=== PATIENT | male | born 1955 | race Caucasian/White ===

== ENCOUNTER 2018-07-30 14:55 | Emergency (ER) | payer OTHER ==
--- NOTE | 2018-07-30 15:07 | EDPHY ---
H & P Time Seen by Provider: 07/30/18 15:04 HPI/ROS: CHIEF COMPLAINT: ALS, PE HISTORY OF PRESENT ILLNESS: Patient is a 63-year-old man with a history of ALS with profound weakness on his right side and moderate weakness on his left side who is being cared for at home by his in [place]. He has medically assisted suicide scheduled next week in [place]. He also was diagnosed 3 months ago with a PE and has been on Eliquis. He discontinued his Eliquis to a week ago because he thought it was futile. Last night however he was having pleuritic pain similar to his previous PE pain. He decided to resume his Eliquis. He also has been taking morphine. His is says that she can no longer take care of him at home and that she is not a nurse and cannot manage him. She called EMS concerned that he may have overdosed on the morphine. He has been awake and alert with stable vital signs throughout transport. He denies recent fevers or infections. Severity: Moderate Modifying factors: None REVIEW OF SYSTEMS: Constitutional: denies: chills, fever, recent illness, recent injury EENTM: denies: blurred vision, double vision, nose congestion Respiratory: denies: cough, shortness of breath Cardiac: denies: chest pain, irregular heart rate, lightheadedness, palpitations Gastrointestinal/Abdominal: denies: abdominal pain, diarrhea, nausea, vomiting, blood streaked stools Genitourinary: denies: dysuria, frequency, hematuria, pain Musculoskeletal: denies: joint pain, muscle pain Skin: denies: lesions, rash, jaundice, bruising Neurological: denies: headache, numbness, paresthesia, tingling, dizziness, weakness Hematologic/Lymphatic: denies: blood clots, easy bleeding, easy bruising Immunologic/allergic: denies: HIV/AIDS, transplant 10 systems reviewed and negative except as noted EXAM: GENERAL: Fatigued HEAD: Atraumatic, normocephalic. EYES: Pupils equal round and reactive to light, extraocular movements intact, sclera anicteric, conjunctiva are normal. ENT: TMs normal, nares patent, oropharynx clear without exudates. Moist mucous membranes. NECK: Normal range of motion, supple without lymphadenopathy or JVD. LUNGS: Breath sounds clear to auscultation bilaterally and equal. No wheezes rales or rhonchi. HEART: Regular rate and rhythm without murmurs, rubs or gallops. ABDOMEN: Soft, nontender, normoactive bowel sounds. No guarding, no rebound. No masses appreciated. BACK: No CVA tenderness, no spinal tenderness, step-offs or deformities EXTREMITIES: Minimal movement in the right arm, no movement in right leg, minimal movement in left arm and leg, this is all baseline. NEUROLOGICAL: Cranial nerves II through XII grossly intact. Normal speech, normal gait. 5/5 strength, normal movement in all extremities, normal sensation , normal reflexes PSYCH: Slightly decreased affect SKIN: Warm, dry, normal turgor, no visible rashes or lesions. Source: Patient Exam Limitations: No limitations - Medical/Surgical History Hx Asthma: No Hx Chronic Respiratory Disease: No Hx Diabetes: No Hx Cardiac Disease: No Hx Renal Disease: No Hx Cirrhosis: No Hx Alcoholism: No Other PMH: ALS, PE - Family History Significant Family History: No pertinent family hx - Social History Smoking Status: Never smoked Alcohol Use: Sober Drug Use: None Constitutional: Initial Vital Signs Temperature (C) 36.8 C 07/30/18 14:58 Heart Rate 94 07/30/18 14:58 Respiratory Rate 18 07/30/18 14:58 Blood Pressure 140/86 H 07/30/18 14:58 O2 Sat (%) 88 L 07/30/18 14:58 O2 Delivery Mode Room Air O2 (L/minute) 2 Medical Decision Making ED Course/Re-evaluation: 4:20 p.m. I had a long discussion with the patient and his . The patient is doing well however his is very flustered. She initially asked me if she could just go and they would take him home but then she began talking about how she was going to have difficulty taking care of him at home and was scared to administer medications. I again offered admission with the goal for higher level of assistance and help getting back to [place]. She was unsure as to whether not this is what she wanted. Case management is currently talking with the hospice nurse in [place] to assist with planning. 5:10 p.m. patient was able to ambulate well with the walker. He is less and less groggy. His vital signs remained stable. His pain is controlled. We had multiple discussions with case management and hospice. His Hospice does not feel that he is appropriate for admission. and friend are agreeable to taking him home feel like taking care for him there. They are concerned about giving him too much pain medication. We encouraged him to return here if they feel that he is requiring too much pain medication. I did offer admission several times but for now their goal is to go home. The patient does not wish to be admitted. Differential Diagnosis: Partial list of the Differential diagnosis considered include but were not limited to; pulmonary embolism, chronic pain, depression, overdose and although unlikely based on the history and physical exam, I also considered infection, head injury. Departure - Departure Disposition: Home, Routine, Self-Care Clinical Impression: ALS (amyotrophic lateral sclerosis) Pulmonary embolism Qualifiers: Pulmonary embolism type: other Chronicity: unspecified Acute cor pulmonale presence: without acute cor pulmonale Qualified Code(s): I26.99 - Other pulmonary embolism without acute cor pulmonale Condition: Fair Instructions: Pulmonary Embolism (ED), Amyotrophic Lateral Sclerosis (DC) Referrals: Patient,NotPresent [Unknown] - As per Instructions
[2018-07-30 17:31] VITALS: BP 141/84
--- NOTE | 2018-07-30 17:49 | ASMTCMCOM ---
CM Note CM Note Notes: Pt presented to the ED via EMS for possible overdose of opioids and benzos. Pt arrived to the ED and has been awake and alert w/stable vital signs; pt does appear slightly sedated / slightly decreased affect. Pt is visiting [place] from [place], with his , Erika; they used to live in [place] for 25 years but have lived in [place] for the past 8 years. Pt has ALS w/profound weakness on his right side and moderate weakness on his left side. Erika has been pt's primary caregiver but pt also receives services through [facility] ([phone]) in [place]. Pt has decided to go through the Medical Aid in Dying process and is scheduled to take the medication this next week. Pt and Erika came up to [place] so pt could visit w/friends and say goodbye; they have been staying in their condo. Erika states she needs to poultry picker the Rxn from [facility] tomorrow after 1 p.m. and then they plan on returning to [place] on Wednesday. Last night pt was having 10/10 pain "nothing I've ever experienced." Erika was calling the on-call hospice (on-call # [phone]) team who were helping give medication administration instructions over the phone; Erika was assisting pt with administering the meds but pt's pain continued to be unbearable but then became rather sedated, weak, and unable to function at baseline; Erika was afraid he had unintentionally overdosed. Pt's cognition and alertness continued to improve while in the ED. Pt was able to walk w/walker (which is his baseline) and Erika feels okay discharging home w/the help of a friend to help get pt into their condo. Erika states she will call their friends or neighbor for assistance if she feels she needs extra help. We discussed that if pt has another severe pain flare tonight that Erika call Hospice again and attempt to control it w/the meds they have and at the condo but if he seems to not be getting a relief she can always bring him to the ED if she is scared to administer additional medication. Erika verbalizes understanding. This CM had spoke w/[facility] supervisor painting (?) Jodi ([phone]) and discussed pt's case; Joid states she agrees that pt doesn't meet criteria for admission and that pt should return home w/Erika and friends to help. Called Jodi back to relay official DC plan; left a voicemail. This CM to follow up on Wednesday. Date Signed: 07/30/2018 05:48 PM Electronically Signed By:Barbara Dunn RN
== END 2018-07-30 17:33 | disposition home or self-care (01) ==
LOC: EDUNIT#
DX: I26.99 Other pulmonary embolism without acute cor pulmonale (principal); G12.21 Amyotrophic lateral sclerosis